=== PATIENT | female | born 1985 | race Caucasian/White ===

== ENCOUNTER 2016-05-21 09:52 | Emergency (ER) | payer BC, MEDICAID ==
[2016-05-21 10:07] VITALS: BP 109/62
[2016-05-21 10:45] LABS: Hematocrit 39 % (35-47); Hemoglobin 13.7 g/dl (12.0-16.0); Mean Corpuscular HGB Conc 35 g/dl (31-36); Mean Corpuscular Hemoglobin 32 pg (27-31); Mean Corpuscular Volume 91 fL (80-97); Mean Platelet Volume 7 um3 (7.4-10.4); Red Blood Count 4.27 10^6/ul (4.0-5.4); Red Cell Distribution Width 12 % (10.5-15); White Blood Count 6.4 10^3/ul (3.5-10.8)
--- NOTE | 2016-05-21 10:45 | ED ---
GI/ HPI - HPI Summary HPI Summary: 30 F presents with multiple complaints. She states that she has had hair loss for many months. She had a mirena since December but this month she had it removed. She states since then she has had her menses twice since the removal and spotting in between. She denies any vaginal discharge or dysuria. She states she gets this intermittent right pelvic pain that occurs for most often with her menses. She states she felt this pain before when she was . She describes it as cramp like. The pain comes and goes and has occurred for 2 weeks now. She denies any fever, n/v/d, or constipation. She also complaining of anxiety and feeling of shakiness that has occurred for a month now. She also admits to an increase in appetite. She thinks the symptoms were related to the mirena. She is with vaginal in 2011. Patient primary language is Irish. - History of Current Complaint Chief Complaint: EDAbdPain Time Seen by Provider: 05/21/16 10:11 Stated Complaint: PELIVC PAIN, WEAKNESS, Pain Intensity: 4 - Allergy/Home Medications Allergies/Adverse Reactions: Allergies Allergy/AdvReac Type Severity Reaction Status Date / Time No Known Allergies Allergy Verified 05/21/16 10:31 PMH/Surg Hx/FS Hx/Imm Hx Endocrine/Hematology History: Denies: Hx Anemia Cardiovascular History: Denies: Hx Hypertension Infectious Disease History: No Infectious Disease History: Reports: Traveled Outside the [place] in Last 30 Days - [place] - Family History Known Family History: Negative: Cardiac Disease - Social History Alcohol Use: None Substance Use Type: Reports: None Smoking Status (MU): Never Smoked Tobacco Review of Systems Negative: Fever Negative: Chest Pain Negative: Shortness Of Breath Positive: Other - pelvic pain. Negative: Abdominal Pain, Vomiting, Diarrhea, Nausea All Other Systems Reviewed And Are Negative: Yes Physical Exam Triage Information Reviewed: Yes Vital Signs On Initial Exam: Initial Vitals Temp Pulse Resp BP Pulse Ox 98.8 F 71 15 109/62 99 05/21/16 09:56 05/21/16 09:56 05/21/16 09:56 05/21/16 09:56 05/21/16 09:56 Vital Signs Reviewed: Yes Appearance: Positive: Well-Appearing Skin: Positive: Warm, Dry Head/Face: Positive: Normal Head/Face Inspection, Other - no area of baldness on exam Eyes: Positive: Normal, Conjunctiva Clear ENT: Positive: Normal ENT inspection, Pharynx normal, TMs normal Respiratory/Lung Sounds: Positive: Clear to Auscultation, Breath Sounds Present Cardiovascular: Positive: Normal, RRR Abdomen Description: Positive: Nontender, Soft, Other: - neg rovsings, obturator Bowel Sounds: Positive: Present Pelvic Exam: Positive: external exam normal, speculum exam normal, bimanual exam normal, no cerv. motion tender. Negative: blood, discharge Diagnostics - Vital Signs Vital Signs Temp Pulse Resp BP Pulse Ox 05/21/16 09:56 98.8 F 71 15 109/62 99 - Laboratory Result Diagrams: 05/21/16 10:30 05/21/16 10:30 Lab Statement: Any lab studies that have been ordered have been reviewed, and results considered in the medical decision making process. - Ultrasound No standard instances Ultrasound Interpretation: No Acute Changes - IMPRESSION: SMALL AMOUNT OF FREE FLUID WITHIN THE CUL-DE-SAC. THIS MAY BE PHYSIOLOGIC WITHIN A REPRODUCTIVE AGE FEMALE. Ultrasound Interpretation Completed By: Radiologist GIGU Course/Dx - Course Course Of Treatment: 30F presents with intermittent right side pelvic pain for two weeks, symptoms started after removed mirena, admits to spotting, also c/o of hair loss, anxiety, inc appetite, and generalized weakness. on drafter electromechanical in NSR, pelvic exam: normal, labs: WBC normal, will check TSH for hair loss which was normal so will have establish care with PCP to follow up, do not suspect appendicitis due to location of pain and abdominal exam nontender, length of time had pain and normal labs, transvaginal u/s:normal, explained results to patient, discussed getting CT to r/o appenditicis defintively but patient declined, will return if pain becomes constant, develop n/v, or fever. advised to establish care with PCP for hair loss and with OBGYN for spotting and pelvic pain, patient agrees with plan - Diagnoses Differential Diagnoses - Female: Ovarian Cyst, Pelvic Inflammatory Disease, STD , Urinary Tract Infection Provider Diagnoses: Pelvic pain, Vaginal bleeding, Hair loss Discharge - Discharge Plan Condition: Good Disposition: HOME Patient Education Materials: Dysfunctional Uterine Bleeding (ED) Referrals: [facility] [place] PH[facility]IAN REFERRAL [Outside] Miranda Miles MD [Medical Doctor] - Additional Instructions: Establish care with primary care physician to discuss potential treatments for hair loss, thyroid levels were normal Establish care with OBGYN: gave referral to dr miles office to discuss vaginal bleeding and pelvic pain Return to ED if develop severe right lower quadrant pain, fever, nausea, vomiting, or any new or worsening symptoms
[2016-05-21 10:52] LABS: Urine Bacteria Absent (Absent); Urine Bilirubin Negative (Negative); Urine Glucose Negative (Negative); Urine Nitrite Negative (Negative)
[2016-05-21 11:05] LABS: ALT 16 U/L (7-52); AST 23 U/L (13-39); Albumin 4.3 g/dL (3.2-5.2); Alkaline Phosphatase 46 U/L (34-104); Anion Gap 5 mmol/L (2-11); BUN/Creatinine Ratio 12.6 (8-20); Blood Urea Nitrogen 11 mg/dL (6-24); CO2 Carbon Dioxide 27 mmol/L (22-32); Calcium 9.1 mg/dL (8.6-10.3); Chloride 104 mmol/L (101-111); EGFR African American 98.3 (>60); EGFR Non-African American 76.4 (>60); Globulin 2.6 g/dL (2-4); Glucose 81 mg/dL (70-100); Lipase 10 U/L (11.0-82.0); Potassium 3.7 mmol/L (3.5-5.0); Sodium 136 mmol/L (133-145); Total Protein 6.9 g/dL (6.4-8.9)
[2016-05-21 11:25] LABS: TSH (Thyroid Stimulating Horm) 0.85 mcIU/mL (0.34-5.60)
--- NOTE | 2016-05-21 12:10 | RAD ---
HISTORY: Right lower quadrant pelvic pain COMPARISONS: None TECHNIQUE: Multiple transverse and longitudinal ultrasound images were obtained of the pelvis using grayscale, color Doppler, and spectral Doppler imaging using the endovaginal transducer. FINDINGS: UTERUS: The uterus measures 8.3 x 3.5 x 4 cm. The uterus is normal in shape, size, contour, and echotexture. Cervical nabothian cysts are noted. ENDOMETRIUM: The endometrial stripe is smooth. The endometrium measures 0.8 cm in thickness. CUL-DE-SAC: There is a trace amount of simple fluid within the cul-de-sac. This may be physiologic in a reproductive age female. RIGHT OVARY: The right ovary measures 3.2 x 1.4 x 2.9 cm. Multiple follicles are noted. Normal arterial and venous waveforms are identifiable within the ovary on spectral Doppler imaging. LEFT OVARY: The left ovary measures 2.7 x 0.9 x 2.6 cm. Multiple follicles are noted. Normal arterial and venous waveforms are identifiable within the ovary on spectral Doppler imaging. BLADDER: The bladder is not well visualized. IMPRESSION: SMALL AMOUNT OF FREE FLUID WITHIN THE CUL-DE-SAC. THIS MAY BE PHYSIOLOGIC WITHIN A REPRODUCTIVE AGE FEMALE.
== END 2016-05-21 12:38 | disposition home or self-care (01) ==
LOC: ED 09:52
DX: R10.2 Pelvic and perineal pain (principal); N93.9 Abnormal uterine and vaginal bleeding, unspecified; R53.1 Weakness; L65.9 Nonscarring hair loss, unspecified
CPT/HCPCS: 36415; 76830; 80053; 81003; 81015; 83690; 84443; 84702; 85025; 86141; 87086; 87480; 87491; 87510; 87591; 87661; 99283

== ENCOUNTER 2016-05-24 10:13 | Emergency (ER) | payer BC, MEDICAID ==
--- NOTE | 2016-05-24 11:07 | RAD ---
INDICATION: Syncopal episode. Headaches. COMPARISON: None TECHNIQUE: Noncontrast axial source images were acquired from the skull base to the vertex. FINDINGS: Ventricles/sulci: The ventricles and cisterns are normal in size and configuration for age. Brain parenchyma: There is no focal parenchymal finding, evidence of intracranial mass, or intracranial mass effect. Intracranial hemorrhage:None. Extra-axial spaces: There are no abnormal extra axial fluid collections or evidence of extra-axial mass. Calvarium: There is no calvarial fracture or other calvarial abnormality. Scalp: There is no evidence of scalp or extracalvarial soft tissue abnormality. Paranasal sinuses/mastoid: The paranasal sinuses and mastoid air cells are clear. Other: None. IMPRESSION: NEGATIVE EXAMINATION
[2016-05-24] MEDS ORDERED: NS 0.9% 1000 ML* 1,000 ML IV ONE (11:10)
[2016-05-24] MEDS ORDERED: Ondansetron INJ* 2 MG/ML VIAL IV ONE (11:10)
--- NOTE | 2016-05-24 11:11 | RAD ---
INDICATION: Syncopal episode 0500 hours today. COMPARISON: None. TECHNIQUE: Multidetector CT images foramen magnum to lung apices without contrast. Multiplanar reformation. REPORT: Negative for paravertebral hematoma. Incidental small 0.8 cm rightward posteriorly directed esophageal diverticulum versus tracheal diverticulum at the thoracic inlet. Negative for cervical vertebral body or posterior element fracture. Negative for facet subluxation at any level. At C4-C5 there is mild vertebral endplate osteophytosis and suggestion of minimal dorsal disc bulge. At C5-C6 there is mild to moderate dorsal disc osteophyte complex without suggestion of significant resulting central canal stenosis with generous congenital pedicle lengths mitigating against acquired central canal stenosis. No osseous foraminal stenosis evident. IMPRESSION: Negative for traumatic cervical spine injury.
[2016-05-24 12:03] LABS: Hematocrit 40 % (35-47); Hemoglobin 14.3 g/dl (12.0-16.0); Mean Corpuscular HGB Conc 36 g/dl (31-36); Mean Corpuscular Hemoglobin 32 pg (27-31); Mean Corpuscular Volume 90 fL (80-97); Mean Platelet Volume 7 um3 (7.4-10.4); Red Blood Count 4.46 10^6/ul (4.0-5.4); Red Cell Distribution Width 12 % (10.5-15); White Blood Count 10.6 10^3/ul (3.5-10.8)
[2016-05-24 12:21] LABS: Albumin 4.6 g/dL (3.2-5.2); Calcium 9.9 mg/dL (8.6-10.3); EGFR African American 94.5 (>60); EGFR Non-African American 73.5 (>60); Globulin 2.7 g/dL (2-4); Magnesium 2.1 mg/dL (1.9-2.7); Total Bilirubin 0.7 mg/dL (0.2-1.0); Total Protein 7.3 g/dL (6.4-8.9)
[2016-05-24 12:45] LABS: TSH (Thyroid Stimulating Horm) 0.73 mcIU/mL (0.34-5.60)
[2016-05-24] MEDS ORDERED: Acetaminophen TAB* 325 MG PO ONE (13:25)
--- NOTE | 2016-05-24 14:27 | ED ---
Syncope/Near Syncope - HPI Summary HPI Summary: Pt here w/ syncope last night. Was walking down the [place] when she felt lightheaded - leaned against the wall as vision went dark and she "lost consciousness". When she came to, she had a SOLIS and vomited. She vomited again this morning and still has SOLIS over frontal head. Had a late dinner and 2 glasses of wine last night - doesn't typically drink ETOH but didn't feel like she had too much. 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 She herself dances some but not competitively. States she used to only eat fruit and vegetables but recently eating soups, bread and meat as well. Denies excessive caffeine, diet pills, etc. No previous episodes of syncope nor illnesses. Reports she had issues w/ her Mirena so it was removed a few months ago. She has had 2 periods this past month. Was seen last week and had labs as well as TVUS which reveals physiologic fluid in cul-de-sac - otherwise normal. Denies vaginal bleeding at this time. - History Of Current Complaint Chief Complaint: EDHeadInjury Time Seen by Provider: 05/24/16 10:38 Hx Obtained From: Patient - Allergies/Home Medications Allergies/Adverse Reactions: Allergies Allergy/AdvReac Type Severity Reaction Status Date / Time No Known Allergies Allergy Verified 05/24/16 10:16 PMH/Surg Hx/FS Hx/Imm Hx Previously Healthy: Yes Endocrine/Hematology History: Denies: Hx Anticoagulant Therapy, Hx Blood Disorders, Hx Anemia, Hx Unexplained Bleeding Cardiovascular History: Denies: Hx Congenital Heart Disease, Hx Embolism, Hx Hypertension Respiratory History: Denies: Hx Asthma, Hx Pneumonia, Hx Pulmonary Embolism GI History: Denies: Hx Crohn's Disease, Hx Gastroesophageal Reflux Disease, Hx Irritable Bowel, Hx Ulcer Infectious Disease History: No Infectious Disease History: Reports: Traveled Outside the [place] in Last 30 Days - [place] - Family History Known Family History: Negative: Cardiac Disease - Social History Occupation: Unemployed Lives: With Family Alcohol Use: Rare Hx Substance Use: No Substance Use Type: Reports: None Hx Tobacco Use: No Smoking Status (MU): Never Smoked Tobacco Review of Systems Positive: Fatigue. Negative: Fever, Chills Eyes: Negative ENT: Negative Negative: Sore Throat, Ear Ache, Nasal Discharge Negative: Palpitations, Chest Pain Negative: Shortness Of Breath, Cough Positive: Vomiting, Nausea. Negative: Abdominal Pain, Diarrhea Negative: burning, dysuria, discharge, frequency, flank pain, hematuria, incontinence, pain, urgency Musculoskeletal: Negative Skin: Negative Positive: Headache, Syncope - see HPI. Negative: Weakness, Paresthesia, Numbness Psychological: Normal All Other Systems Reviewed And Are Negative: Yes Physical Exam Triage Information Reviewed: Yes Vital Signs On Initial Exam: Initial Vitals Temp Pulse Resp BP Pulse Ox 98.6 F 70 15 116/69 100 05/24/16 10:16 05/24/16 10:16 05/24/16 10:16 05/24/16 10:16 05/24/16 10:16 Vital Signs Reviewed: Yes Appearance: Positive: Well-Appearing - reports nausea, No Pain Distress, Thin Skin: Positive: Warm, Dry - no ecchymosis, no erythema Head/Face: Positive: Normal Head/Face Inspection Eyes: Positive: Normal, EOMI, LEONARD, Conjunctiva Clear ENT: Positive: Normal ENT inspection, Hearing grossly normal, Pharynx normal - mucosa moist, TMs normal. Negative: Pharyngeal erythema, Nasal congestion, Nasal drainage, Tonsillar swelling, Tonsillar exudate Neck: Positive: Supple, Nontender, No Lymphadenopathy Respiratory/Lung Sounds: Positive: Clear to Auscultation, Breath Sounds Present. Negative: Rales, Rhonchi, Stridor, Wheezes Cardiovascular: Positive: Normal, RRR, S1, S2. Negative: Murmur, Rub, Leg Edema Left, Leg Edema Right Abdomen Description: Positive: Nontender, No Organomegaly, Soft. Negative: CVA Tenderness (R), CVA Tenderness (L), Distended Bowel Sounds: Positive: Present Musculoskeletal: Positive: Normal, Strength/ROM Intact Neurological: Positive: Normal, Sensory/Motor Intact, Alert, Oriented to Person Place, Time, CN Intact II-III Psychiatric: Positive: Normal - concerned, mildly anxious - [place] Coma Scale Coma Scale Total: 15 Diagnostics - Vital Signs Vital Signs Temp Pulse Resp BP Pulse Ox 05/24/16 12:30 80 15 110/67 100 05/24/16 12:00 75 16 107/66 100 05/24/16 11:30 71 13 115/73 100 05/24/16 11:19 18 05/24/16 11:09 118/82 05/24/16 10:16 98.6 F 70 15 116/69 100 - Laboratory Lab Results: Lab Results 05/24/16 05/24/16 05/24/16 Range/Units 11:46 11:46 11:46 WBC 10.6 (3.5-10.8) 10^3/ul RBC 4.46 (4.0-5.4) 10^6/ul Hgb 14.3 (12.0-16.0) g/dl Hct 40 (35-47) % MCV 90 (80-97) fL MCH 32 H (27-31) pg MCHC 36 (31-36) g/dl RDW 12 (10.5-15) % Plt Count 233 (150-450) 10^3/ul MPV 7 L (7.4-10.4) um3 Neut % (Auto) 79.7 (38-83) % Lymph % (Auto) 14.0 L (25-47) % [place] % (Auto) 5.8 (1-9) % Eos % (Auto) 0.2 (0-6) % Baso % (Auto) 0.3 (0-2) % Absolute Neuts (auto) 8.5 H (1.5-7.7) 10^3/ul Absolute Lymphs (auto) 1.5 (1.0-4.8) 10^3/ul Absolute Monos (auto) 0.6 (0-0.8) 10^3/ul Absolute Eos (auto) 0 (0-0.6) 10^3/ul Absolute Basos (auto) 0 (0-0.2) 10^3/ul Absolute Nucleated RBC 0 10^3/ul Nucleated RBC % 0 D-Dimer, Quantitative < 200 (Less Than 230) ng/mL Sodium 140 (133-145) mmol/L Potassium 4.0 (3.5-5.0) mmol/L Chloride 105 (101-111) mmol/L Carbon Dioxide 29 (22-32) mmol/L Anion Gap 6 (2-11) mmol/L BUN 18 (6-24) mg/dL Creatinine 0.90 (0.51-0.95) mg/dL Est GFR ( Amer) 94.5 (>60) Est GFR (Non-Af Amer) 73.5 (>60) BUN/Creatinine Ratio 20.0 (8-20) Glucose 104 H (70-100) mg/dL Calcium 9.9 (8.6-10.3) mg/dL Magnesium 2.1 (1.9-2.7) mg/dL Total Bilirubin 0.70 (0.2-1.0) mg/dL AST 21 (13-39) U/L ALT 17 (7-52) U/L Alkaline Phosphatase 51 (34-104) U/L Troponin I Pending Total Protein 7.3 (6.4-8.9) g/dL Albumin 4.6 (3.2-5.2) g/dL Globulin 2.7 (2-4) g/dL Albumin/Globulin Ratio 1.7 (1-3) TSH 0.73 (0.34-5.60) mcIU/mL Influenza A (Rapid) (Negative) Influenza B (Rapid) (Negative) 05/24/16 Range/Units 12:49 WBC (3.5-10.8) 10^3/ul RBC (4.0-5.4) 10^6/ul Hgb (12.0-16.0) g/dl Hct (35-47) % MCV (80-97) fL MCH (27-31) pg MCHC (31-36) g/dl RDW (10.5-15) % Plt Count (150-450) 10^3/ul MPV (7.4-10.4) um3 Neut % (Auto) (38-83) % Lymph % (Auto) (25-47) % [place] % (Auto) (1-9) % Eos % (Auto) (0-6) % Baso % (Auto) (0-2) % Absolute Neuts (auto) (1.5-7.7) 10^3/ul Absolute Lymphs (auto) (1.0-4.8) 10^3/ul Absolute Monos (auto) (0-0.8) 10^3/ul Absolute Eos (auto) (0-0.6) 10^3/ul Absolute Basos (auto) (0-0.2) 10^3/ul Absolute Nucleated RBC 10^3/ul Nucleated RBC % D-Dimer, Quantitative (Less Than 230) ng/mL Sodium (133-145) mmol/L Potassium (3.5-5.0) mmol/L Chloride (101-111) mmol/L Carbon Dioxide (22-32) mmol/L Anion Gap (2-11) mmol/L BUN (6-24) mg/dL Creatinine (0.51-0.95) mg/dL Est GFR ( Amer) (>60) Est GFR (Non-Af Amer) (>60) BUN/Creatinine Ratio (8-20) Glucose (70-100) mg/dL Calcium (8.6-10.3) mg/dL Magnesium (1.9-2.7) mg/dL Total Bilirubin (0.2-1.0) mg/dL AST (13-39) U/L ALT (7-52) U/L Alkaline Phosphatase (34-104) U/L Troponin I Total Protein (6.4-8.9) g/dL Albumin (3.2-5.2) g/dL Globulin (2-4) g/dL Albumin/Globulin Ratio (1-3) TSH (0.34-5.60) mcIU/mL Influenza A (Rapid) Negative (Negative) Influenza B (Rapid) Negative (Negative) Result Diagrams: 05/24/16 11:46 05/24/16 11:46 Lab Statement: Any lab studies that have been ordered have been reviewed, and results considered in the medical decision making process. Course/Dx Course Of Treatment: 30 y.o. female presents w/ syncope last night of unknown etiology after eating a late dinner and consuming 2 glasses of wine. She had a head and neck CT - no acute findings. Her ECG is NSR w/ no abnormal findings and labs, vitals signs are WNL. Her nausea resolved w/ zofran and sx overall improved somewhat with IV fluids. Her symptoms could not be reproduced w/ position and she was able to ambulate and tolerate PO fluids w/o difficulty. It was discussed although this may be exhaustion and the fact that she's underweight and consumed 2 glasses of wine last night, she should still seek further assesment through a PCP's office. Provided referral information today. If danger s/sx present, pt to return to ED. - Diagnoses Provider Diagnoses: Syncope Discharge - Discharge Plan Condition: Stable Disposition: HOME Patient Education Materials: Malnutrition (GEN), Syncope (ED) Referrals: [facility] [place] [facility] [place] [place] [Outside] Additional Instructions: All of your tests today are negative for life threatening causes of syncope, aka "passing out", "losing consciousness". Based on your history, it appears you may need to consume more calories per day - you may try eating more frequently and/or more calorie dense meals. It may also be helpful to reduce physical activity for a period of time. It is important however that you follow- up with PCP to further investigate your unintentional weight loss and syncope. Call the number provided today to schedule an appointment in the next 2 weeks. In the meantime, avoid caffeine and alcohol and consume plenty of hydrating fluids. *If you have worsening of symptoms (ie. chest pain, shortness of breath, repeat syncope, fever, vomiting, ab pain, etc), return to ED
[2016-05-24 14:31] LABS: Troponin I 0.01 ng/mL (<0.04)
[2016-05-24 15:03] VITALS: BP 107/62
== END 2016-05-24 15:03 | disposition home or self-care (01) ==
LOC: ED 10:13
DX: R55 Syncope and collapse (principal); R42 Dizziness and giddiness; R53.83 Other fatigue; R11.2 Nausea with vomiting, unspecified; R51 Headache
CPT/HCPCS: 36415; 70450; 72125; 80053; 83735; 84443; 84484; 85025; 85379; 87502; 93005; 96361; 96374; 99283; A9270-GY; J2405